=== PATIENT | female | born 1950 ===

== ENCOUNTER 2018-02-06 16:17 | Inpatient (IN) | payer OTHER ==
[2018-02-06 18:31] VITALS: BMI 23.2
--- NOTE | 2018-02-06 20:41 | CP.PCM.HP ---
History of Present Illness - History of Present Illness History of Present Illness: cc fall 68F PMH hypertension admitted to TCU from [facility] s/p L shoulder hemoarthoplasty after sustaining fracture of the L shoulder due to fall. Pt is admitted with a sodium of 126, which was [address] [facility]. She is being followed by Nephrology, Dr. Neri. She is admitted TCU for further PT/OT and correction of Na. Nephrology consult Dr. Cr appreciated and followed. ROS: per HPI all other systems reviewd and negative. Present on Admission - Present on Admission Any Indicators Present on Admission: No Past Patient History - Past Medical History & Family History Past Medical History?: Yes - Past Social History Smoking Status: Never Smoked - CARDIAC Hx Cardiac Disorders: No Hx Hypertension: Yes - PULMONARY Hx Respiratory Disorders: No - NEUROLOGICAL Hx Neurological Disorder: No - HEENT Hx HEENT Problems: Yes Hx Glaucoma: Yes - RENAL Hx Chronic Kidney Disease: No - ENDOCRINE/METABOLIC Hx Endocrine Disorders: No - HEMATOLOGICAL/ONCOLOGICAL Hx Blood Disorders: No Hx AIDS: No Hx Human Immunodeficiency Virus (HIV): No - INTEGUMENTARY Hx Dermatological Problems: No - MUSCULOSKELETAL/RHEUMATOLOGICAL Hx Falls: Yes - GASTROINTESTINAL Hx Gastrointestinal Disorders: Yes Hx Gall Bladder Disease: Yes - GENITOURINARY/GYNECOLOGICAL Hx Genitourinary Disorders: No - PSYCHIATRIC Hx Psychophysiologic Disorder: No Hx Substance Use: No - SURGICAL HISTORY Hx Surgeries: Yes Other/Comment: Fibroids removed by Dr Yenni Teran - ANESTHESIA Hx Anesthesia: Yes Hx Anesthesia Reactions: No Hx Malignant Hyperthermia: No Meds Allergies/Adverse Reactions: Allergies Allergy/AdvReac Type Severity Reaction Status Date / Time No Known Allergies Allergy Verified 02/06/18 18:27 Physical Exam - Constitutional Appears: Non-toxic, No Acute Distress - Head Exam Head Exam: ATRAUMATIC, NORMOCEPHALIC - Eye Exam Eye Exam: EOMI, Normal appearance, PERRL - ENT Exam ENT Exam: Mucous Membranes Moist, Normal Oropharynx - Respiratory Exam Respiratory Exam: Clear to Auscultation Bilateral, NORMAL BREATHING PATTERN - Cardiovascular Exam Cardiovascular Exam: RRR, +S1, +S2 - GI/Abdominal Exam GI & Abdominal Exam: Normal Bowel Sounds, Soft. absent: Mass, Organomegaly - Extremities Exam Extremities exam: Positive for: normal capillary refill, pedal pulses present - Back Exam Back exam: absent: CVA tenderness (L), CVA tenderness (R) - Neurological Exam Neurological exam: Alert, Oriented x3 - Psychiatric Exam Psychiatric exam: Normal Affect, Normal Mood - Skin Skin Exam: Dry, Warm Results - Vital Signs Recent Vital Signs: Last Vital Signs Temp 98.2 F 02/06/18 18:10 Pulse 101 H 02/06/18 18:10 Resp 18 02/06/18 18:10 BP 120/69 02/06/18 18:10 Pulse Ox 97 02/06/18 18:10 Assessment & Plan - Assessment and Plan (Free Text) Plan: 68F PMH hypertension admitted to TCU from [facility] s/p L shoulder hemoarthoplasty after sustaining fracture of the L shoulder due to fall. Pt is admitted with a sodium of 126, which was [address] [facility]. She is being followed by Nephrology, Dr. Neri. She is admitted TCU for further PT/OT and correction of Na. Nephrology consult Dr. Cr appreciated and followed. s/p L shoulder hemarthroplasty continue PT OT pain control Hyponatremia continue NS Dr. Cr on consult for Nephrology HTN continue losartan Glaucoma continue drops DVT ppx lovenox
[2018-02-06 21:39] VITALS: RESP 20
[2018-02-06] MEDS: Sodium Chloride 0.9% 1,000 ML IV SCH (23:00)
[2018-02-06] MEDS: oxyCODONE 5 mg Immediate Release Tab PO PRN (23:16)
[2018-02-07 06:58] LABS: HEMOGLOBIN 8.2 g/dL (12.0-16.0); MEAN CELL VOLUME 80.7 fl (81.0-99.0); MEAN CORPUSCULAR HEMOGLOBIN 27.7 pg (27.0-31.0); MEAN CORPUSCULAR HGB CONC 34.3 g/dL (33.0-37.0); RBC 2.97 Mil/uL (3.80-5.20); RED CELL DISTRIBUTION WIDTH 14.1 % (11.5-14.5); WHITE BLOOD COUNT 10.9 K/uL (4.8-10.8)
[2018-02-07 07:10] LABS: BLOOD UREA NITROGEN 17 mg/dl (7-17); CALCIUM 8.2 mg/dL (8.4-10.2); GFR AFRICAN-AMERICAN > 60; GFR NON-AFRICAN AMERICAN > 60
[2018-02-07] MEDS: Multivitamin With Minerals Tab PO SCH (08:53)
[2018-02-07] MEDS: Enoxaparin 40 mg Syringe SC SCH (08:53)
[2018-02-07] MEDS: oxyCODONE 5 mg Immediate Release Tab PO PRN ×2 (08:54→14:49)
[2018-02-07] MEDS ORDERED: Patient's Own Med (Multivitamins [Hexavitamin] 1 TAB) PO SCH (09:00)
[2018-02-07] MEDS ORDERED: Pneumococcal 23-Valent Vaccine IM ONE (09:00)
[2018-02-07] MEDS ORDERED: Patient's Own Med (Dorzolamide 2%/Timolol 0.5% [Cosopt 2%-0.5% Opht] 1 DROP) OU SCH (09:00)
[2018-02-07] MEDS: Sodium Chloride 0.9% 1,000 ML IV SCH ×2 (10:47→17:35)
--- NOTE | 2018-02-07 17:15 | CP.PCM.PN ---
Subjective - Date & Time of Evaluation Date of Evaluation: 02/07/18 Time of Evaluation: 17:15 - Subjective Subjective: pt is seen and examined, follow up consult is dictated #[id number] Objective - Vital Signs/Intake and Output Vital Signs (last 24 hours): Temp Pulse Resp BP Pulse Ox 97.7 F 85 20 99/58 L 97 02/07/18 15:57 02/07/18 15:57 02/07/18 15:57 02/07/18 15:57 02/07/18 15:57 - Medications Medications: Current Medications Acetaminophen (Tylenol 325mg Tab) 650 mg PO Q6 PRN PRN Reason: Pain, Mild (1-3) Amlodipine Besylate (Norvasc) 5 mg PO DAILY [facility] Last Admin: 02/07/18 08:53 Dose: 5 mg Docusate Sodium (Colace) 100 mg PO BID [facility] Last Admin: 02/07/18 08:52 Dose: 100 mg Enoxaparin Sodium (Lovenox) 40 mg SC DAILY [facility] PRN Reason: Protocol Last Admin: 02/07/18 08:53 Dose: 40 mg Sodium Chloride (Sodium Chloride 0.9%) 1,000 mls @ 100 mls/hr IV .Q10H [facility] Stop: 02/07/18 20:36 Last Admin: 02/07/18 10:47 Dose: 100 mls/hr Lactulose (Enulose) 20 gm PO DAILY PRN PRN Reason: Constipation Last Admin: 02/07/18 13:12 Dose: 20 gm Losartan Potassium (Cozaar) 50 mg PO DAILY [facility] Last Admin: 02/07/18 08:52 Dose: 50 mg Multivitamins/Minerals (Therapeutic-M Tab) 1 tab PO DAILY [facility] Last Admin: 02/07/18 08:53 Dose: 1 tab Oxycodone HCl (Oxycodone Immediate Release Tab) 5 mg PO Q4 PRN PRN Reason: Pain, severe (8-10) Last Admin: 02/07/18 14:49 Dose: 5 mg Promethazine HCl/Dextromethorphan (Phenergan Dm Syrup) 5 ml PO Q8 PRN PRN Reason: Cough Timolol Maleate (Timoptic 0.5% Ophth Soln) 1 drop OU BID [facility] Last Admin: 02/07/18 08:55 Dose: 1 drop - Labs Labs: 02/07/18 06:00 02/07/18 06:00
[2018-02-08] MEDS: Sodium Chloride 0.9% 1,000 ML IV SCH ×3 (01:52→22:24)
[2018-02-08] MEDS: oxyCODONE 5 mg Immediate Release Tab PO PRN ×3 (03:07→22:21)
[2018-02-08 06:49] LABS: HEMOGLOBIN 7.9 g/dL (12.0-16.0); MEAN CELL VOLUME 80.6 fl (81.0-99.0); MEAN CORPUSCULAR HEMOGLOBIN 27.9 pg (27.0-31.0); MEAN CORPUSCULAR HGB CONC 34.6 g/dL (33.0-37.0); RBC 2.83 Mil/uL (3.80-5.20); RED CELL DISTRIBUTION WIDTH 14.4 % (11.5-14.5); WHITE BLOOD COUNT 14.4 K/uL (4.8-10.8)
[2018-02-08] MEDS: Multivitamin With Minerals Tab PO SCH (08:41)
[2018-02-08] MEDS: Enoxaparin 40 mg Syringe SC SCH ×2 (08:42→10:31)
--- NOTE | 2018-02-08 09:07 | CP.PCM.CON ---
History of Present Illness - History of Present Illness History of Present Illness: Dr Lala PMR consultation on Amanda Hernadez, born 1950 who has been admitted to [facility] TCU following a left TSR. She suffered a fall with resultant fracture. Dr Bray performed TSR. Post op hyponatria and Anemia. Hgb is trending down and was 7.9 today. Moving legs well and can squeeze hand ok as well. I will hold the LMWH at this point and reinforce leg pumps and hand squeezing Review of Systems - Constitutional Constitutional: absent: Chills, Daytime Sleepiness - EENT Eyes: absent: Blurred Vision, Change in Vision Ears: absent: Ear Discharge Nose/Mouth/Throat: absent: Nasal Congestion - Cardiovascular Cardiovascular: absent: Chest Pain - Respiratory Respiratory: absent: Cough, Dyspnea - Gastrointestinal Gastrointestinal: absent: Belching, Constipation - Musculoskeletal Musculoskeletal: Stiffness. absent: Back Pain - Integumentary Integumentary: Other (left shoulder incisions) Past Patient History - Past Medical History & Family History Past Medical History?: Yes - Past Social History Smoking Status: Never Smoked Alcohol: None Drugs: Denies Home Situation {Lives}: Alone (few steps) - CARDIAC Hx Cardiac Disorders: No Hx Hypertension: Yes - PULMONARY Hx Respiratory Disorders: No - NEUROLOGICAL Hx Neurological Disorder: No - HEENT Hx HEENT Problems: Yes Hx Glaucoma: Yes - RENAL Hx Chronic Kidney Disease: No - ENDOCRINE/METABOLIC Hx Endocrine Disorders: No - HEMATOLOGICAL/ONCOLOGICAL Hx Blood Disorders: No Hx AIDS: No Hx Human Immunodeficiency Virus (HIV): No - INTEGUMENTARY Hx Dermatological Problems: No - MUSCULOSKELETAL/RHEUMATOLOGICAL Hx Falls: Yes - GASTROINTESTINAL Hx Gastrointestinal Disorders: Yes Hx Gall Bladder Disease: Yes - GENITOURINARY/GYNECOLOGICAL Hx Genitourinary Disorders: No - PSYCHIATRIC Hx Psychophysiologic Disorder: No Hx Substance Use: No - SURGICAL HISTORY Hx Surgeries: Yes Other/Comment: Fibroids removed by Dr Yenni Teran - ANESTHESIA Hx Anesthesia: Yes Hx Anesthesia Reactions: No Hx Malignant Hyperthermia: No Meds Allergies/Adverse Reactions: Allergies Allergy/AdvReac Type Severity Reaction Status Date / Time No Known Allergies Allergy Verified 02/06/18 18:27 - Medications Medications: Current Medications Acetaminophen (Tylenol 325mg Tab) 650 mg PO Q6 PRN PRN Reason: Pain, Mild (1-3) Amlodipine Besylate (Norvasc) 5 mg PO DAILY [facility] Last Admin: 02/08/18 08:42 Dose: 5 mg Docusate Sodium (Colace) 100 mg PO BID [facility] Last Admin: 02/08/18 08:41 Dose: Not Given Enoxaparin Sodium (Lovenox) 40 mg SC DAILY [facility] PRN Reason: Protocol Last Admin: 02/07/18 08:53 Dose: 40 mg Sodium Chloride (Sodium Chloride 0.9%) 1,000 mls @ 100 mls/hr IV .Q10H [facility] Stop: 02/09/18 01:09 Last Admin: 02/08/18 01:52 Dose: 100 mls/hr Lactulose (Enulose) 20 gm PO DAILY PRN PRN Reason: Constipation Last Admin: 02/07/18 13:12 Dose: 20 gm Losartan Potassium (Cozaar) 50 mg PO DAILY [facility] Last Admin: 02/08/18 08:41 Dose: 50 mg Multivitamins/Minerals (Therapeutic-M Tab) 1 tab PO DAILY [facility] Last Admin: 02/08/18 08:41 Dose: 1 tab Oxycodone HCl (Oxycodone Immediate Release Tab) 5 mg PO Q4 PRN PRN Reason: Pain, severe (8-10) Last Admin: 02/08/18 07:50 Dose: 5 mg Promethazine HCl/Dextromethorphan (Phenergan Dm Syrup) 5 ml PO Q8 PRN PRN Reason: Cough Timolol Maleate (Timoptic 0.5% Ophth Soln) 1 drop OU BID [facility] Last Admin: 02/08/18 08:43 Dose: 1 drop Physical Exam - Constitutional Appears: Non-toxic, No Acute Distress - Head Exam Head Exam: ATRAUMATIC, NORMAL INSPECTION, NORMOCEPHALIC - Eye Exam Eye Exam: EOMI - ENT Exam ENT Exam: Mucous Membranes Moist - Respiratory Exam Respiratory Exam: NORMAL BREATHING PATTERN - Cardiovascular Exam Cardiovascular Exam: REGULAR RHYTHM - GI/Abdominal Exam GI & Abdominal Exam: absent: Distended - Extremities Exam Extremities exam: Positive for: full ROM (except left shoulder). Negative for: calf tenderness, pedal edema - Neurological Exam Neurological exam: Alert, CN II-XII Intact, Oriented x3 - Psychiatric Exam Psychiatric exam: Normal Affect, Normal Mood - Skin Skin Exam: Warm Results - Vital Signs Recent Vital Signs: Last Vital Signs Temp 97.4 F L 02/08/18 08:10 Pulse 78 02/08/18 08:42 Resp 20 02/08/18 08:10 BP 121/73 02/08/18 08:42 Pulse Ox 99 02/08/18 08:10 - Labs Result Diagrams: 02/08/18 05:30 02/07/18 06:00 Labs: Laboratory Results - last 24 hr 02/08/18 05:30 WBC 14.4 H RBC 2.83 L Hgb 7.9 L Hct 22.9 L MCV 80.6 L MCH 27.9 MCHC 34.6 RDW 14.4 Plt Count 354 Assessment & Plan - Assessment and Plan (Free Text) Assessment: 68 year old right hand dominant female s/p left TSR post op pain but tolerating meds was constipated but had good BMs trending low Hgb will hold LMWH and have do leg and arm pumps no calf swelling or tenderness continue current care
[2018-02-09] MEDS: oxyCODONE 5 mg Immediate Release Tab PO PRN ×3 (05:29→21:55)
[2018-02-09 07:49] LABS: MEAN CELL VOLUME 79.7 fl (81.0-99.0); MEAN CORPUSCULAR HEMOGLOBIN 27.6 pg (27.0-31.0); MEAN CORPUSCULAR HGB CONC 34.6 g/dL (33.0-37.0); RBC 2.9 Mil/uL (3.80-5.20); RED CELL DISTRIBUTION WIDTH 14.7 % (11.5-14.5); WHITE BLOOD COUNT 10.4 K/uL (4.8-10.8)
[2018-02-09 08:12] LABS: ALB/GLOB RATIO 0.9 (1.0-2.1); ALBUMIN 2.6 g/dL (3.5-5.0); ALT/SGPT 35 U/L (9-52); AST/SGOT 28 U/L (14-36); BLOOD UREA NITROGEN 8 mg/dl (7-17); CALCIUM 7.9 mg/dL (8.4-10.2); GFR AFRICAN-AMERICAN > 60; GFR NON-AFRICAN AMERICAN > 60
[2018-02-09] MEDS: Multivitamin With Minerals Tab PO SCH (08:23)
--- NOTE | 2018-02-09 13:16 | CP.PCM.PN ---
Subjective - Date & Time of Evaluation Date of Evaluation: 02/09/18 Time of Evaluation: 13:16 - Subjective Subjective: pt is seen and examined, follow up consult is dictated # serum na is improving, c/w analgesics as [id number] Objective - Vital Signs/Intake and Output Vital Signs (last 24 hours): Temp Pulse Resp BP Pulse Ox 97 F L 77 20 144/78 98 02/09/18 09:00 02/09/18 09:00 02/09/18 09:00 02/09/18 09:00 02/09/18 09:00 - Medications Medications: Current Medications Acetaminophen (Tylenol 325mg Tab) 650 mg PO Q6 PRN PRN Reason: Pain, Mild (1-3) Last Admin: 02/09/18 02:35 Dose: 650 mg Amlodipine Besylate (Norvasc) 5 mg PO DAILY [facility] Last Admin: 02/09/18 08:23 Dose: 5 mg Docusate Sodium (Colace) 100 mg PO BID [facility] Last Admin: 02/09/18 08:22 Dose: 100 mg Lactulose (Enulose) 20 gm PO DAILY PRN PRN Reason: Constipation Last Admin: 02/07/18 13:12 Dose: 20 gm Losartan Potassium (Cozaar) 50 mg PO DAILY [facility] Last Admin: 02/09/18 08:22 Dose: 50 mg Multivitamins/Minerals (Therapeutic-M Tab) 1 tab PO DAILY [facility] Last Admin: 02/09/18 08:23 Dose: 1 tab Oxycodone HCl (Oxycodone Immediate Release Tab) 5 mg PO Q4 PRN PRN Reason: Pain, severe (8-10) Last Admin: 02/09/18 05:29 Dose: 5 mg Promethazine HCl/Dextromethorphan (Phenergan Dm Syrup) 5 ml PO Q8 PRN PRN Reason: Cough Timolol Maleate (Timoptic 0.5% Ophth Soln) 1 drop OU BID [facility] Last Admin: 02/09/18 08:23 Dose: 1 drop - Labs Labs: 02/09/18 05:30 02/09/18 05:30
--- NOTE | 2018-02-10 03:56 | PN ---
Copied To: Cali Neri MD Attending MD: Cali Neri MD DATE: 02/09/2018 LOCATION: The patient is located in room 78, bed 1. REQUESTED BY: . REASON FOR FOLLOWUP: Hyponatremia. SUBJECTIVE: Mrs. Hernadez is a 68-year-old elderly Nepalese female with a history of longstanding hypertension, gallbladder disease, who was admitted initially to [facility]3] after she had a fall in the house twice and sustained injury to the left shoulder and found to have an injury to the proximal left humerus and subsequently the patient underwent left hemiarthroplasty of the left shoulder and the patient was also found to have severe hyponatremia on admission, 111, and subsequently serum sodium improved with hydration to 131, went for surgery and postop her serum sodium dropped again to 124, and the patient was placed on some fluid restriction with slight improvement and started on IV fluids one day prior to the discharge to transitional care unit. Now, the patient is feeling better and the patient is on IV fluid, normal saline at 50 mL per hour. Denies any complaints. No chest pain. No palpitation. No fever. No cough. No abdominal pain. No nausea, vomiting, diarrhea. The patient is out of bed to chair. PHYSICAL EXAMINATION: GENERAL: Mrs. Hernadez is a 68-year-old elderly [place]alese female, moderately built, moderately nourished, not in acute distress. VITAL SIGNS: This morning as follows: Blood pressure 144/78, pulse 77, respirations 20, temperature 97, saturation 98%, height 4 feet 11 inches and weight is 119 pounds. HEENT: Pupils, normal reactive to light and accommodation. Conjunctiva pink. Sclera anicteric. Tongue is moist. Trachea is midline. LUNGS: Symmetric on both sides. Bilateral breath sounds present. Clear to auscultation. CVS; Williams at the fifth intercostal space, mid clavicular line. S1, S2 audible. ABDOMEN: Normal in appearance. Soft tympanitic. No guarding. No rigidity. No hepatosplenomegaly. COMMUNICATIONS ASSOCIATE: The patient is alert, awake, oriented x3. Nonfocal neuro exam. Cranial nerve II through XII grossly intact. Sensory and motor system is within normal limits. EXTREMITIES: No cyanosis. No clubbing. No edema. CURRENT MEDICATIONS: Include as follows: Colace 100 mg p.o. b.i.d., losartan 50 mg p.o. daily, lactulose 20 g p.o. daily, amlodipine 5 mg daily, oxycodone 5 mg p.o. every 4 hours p.r.n. Phenergan DM syrup 5 mL p.o. every 8 hours p.r.n., multivitamin, and timolol eyedrops and Tylenol. LABORATORY DATA: Her current laboratory data include as follows as of 02/09/2018: WBC 10.4, hemoglobin 8.0, hematocrit is 23.1, and MCV 79.7. Platelets 388. Sodium 132, potassium 3.6, chloride 97, CO2 of 28, BUN 8, creatinine 0.5, glucose 93, and calcium 7.9, total bili 1, AST 28, ALT 25, alkaline phosphatase is 573 and total protein is 5.6, albumin is 2.6. In summary, Mrs. Hernadez is a 68-year-old elderly [place]alese female with hypertension, hyponatremia, status post fall, twisted injury to the left humerus, status post left hemiarthroplasty and hyponatremia. 2. Hyponatremia, most likely secondary to intravascular volume depletion secondary to p.o. intake, serum sodium is nicely improving with gentle IV hydration at this time. I encourage p.o. intake. 2. Hypoalbuminemia. 3. Hypertension. Blood pressure is stable. Continue her current medication losartan and Norvasc. Continue to monitor BNP. We will follow up as needed. 4. Anemia secondary to recent surgery and rule out iron deficiency anemia. Check iron, TIBC, ferritin level and add Procrit 10,000 units three times a week and also dietary supplement p.o. b.i.d. Thank you for allowing me to participate in our patient's care. Cali Neri MD
--- NOTE | 2018-02-10 08:25 | PN ---
Copied To: Cali Neri MD Attending MD: Cali Neri MD DATE: 02/07/2018 FOLLOWUP RENAL CONSULTATION LOCATION: The patient is located in [facility], room 708, bed 1. REQUESTED BY: SUBJECTIVE: Mrs. Hernadez is a 68-year-old elderly [place] female with a past medical history significant for longstanding hypertension, colon and gallbladder disease, status post fall at home twice and here with injury to the left shoulder, found to have a fracture of the left humerus, status post left hemiarthroplasty on Saturday. The patient was transferred to the transitional care unit yesterday from [facility] for physical therapy. The patient is not in acute distress. Denies any headache or dizziness. Denies any chest pain or palpitations. Denies any fever or cough. No abdominal pain. No nausea, vomiting, or diarrhea. The patient is ambulating. PHYSICAL EXAMINATION: VITAL SIGNS: As follows: Blood pressure 132/67, pulse , respirations 20, temperature . GENERAL: Mrs. Hernadez is a 68-year-old elderly [place] female, moderately built, moderately nourished, not in acute distress. HEENT: Pupils are normal and reactive to light and accommodation. Conjunctivae pink. Sclerae anicteric. Tongue is moist. Trachea is midline. LUNGS: Symmetric on both sides. Bilateral breath sounds present. Clear to auscultation. CVS: Ackley at the fifth intercostal space, midclavicular line. S1 and S2 audible. No murmur or gallop. ABDOMEN: Normal in appearance. Soft, tympanitic. No guarding. No rigidity. No hepatosplenomegaly. SOCIAL MEDIA MANAGER: The patient is alert, awake, and oriented x3. Nonfocal neuro examination. Cranial nerves II-XII grossly intact. Sensory and motor system is within normal limits. EXTREMITIES: No cyanosis, no clubbing, no edema. CURRENT MEDICATIONS: Include as follows: Colace 100 mg p.o. daily, losartan 50 mg p.o. daily, lactulose 20 g p.o. daily, Lovenox 40 mg subcu daily, amlodipine 5 mg daily, IV fluids normal saline at 50 mL per hour, . LABORATORY DATA: Include as follows: WBC 10.9, hemoglobin 8.2, hematocrit is 34, platelets . Sodium 127, potassium 4.2, chloride 94, CO2 of 28, BUN 17, creatinine 0.6, blood glucose , calcium 8.2. ASSESSMENT AND PLAN: In summary, Mr. Hernadez is a 68-year-old elderly [place] female with a history of hypertension, status post fall twice in the house, sustained injury to the left shoulder and fracture of the left proximal humerus, status post left hemiarthroplasty with hyponatremia. The patient was admitted initially . 1. Hypertension. Blood pressure is stable. Continue blood pressure medication of Norvasc and . 2. Status post fall with a fracture of the left proximal humerus. . 3. Hyponatremia. Initially, hyponatremia was mostly likely secondary to intravascular depletion. Now, hyponatremia is most likely secondary to syndrome of inappropriate secretion of antidiuretic hormone which cannot be ruled out postoperative pain. Restrict fluids to 1 liter per day. We will continue to monitor BMP. 4. . We will follow with you. Thank you for allowing me to participate in your patient's care. Cali Neri MD
[2018-02-10] MEDS ORDERED: Iron Sucrose 100 mg/5 ml Inj IVP SCH (09:00)
[2018-02-10] MEDS: Multivitamin With Minerals Tab PO SCH (09:48)
[2018-02-10] MEDS: Promethazine DM 6.25 mg-15 mg/5 ml Syrup PO PRN (09:49)
[2018-02-10] MEDS: oxyCODONE 5 mg Immediate Release Tab PO PRN ×3 (09:53→20:52)
[2018-02-10] MEDS: EPOETIN ALFA 10,000 UNIT/ML ML SC SCH (11:19)
[2018-02-11] MEDS: Multivitamin With Minerals Tab PO SCH (08:52)
[2018-02-11] MEDS: Promethazine DM 6.25 mg-15 mg/5 ml Syrup PO PRN (08:53)
[2018-02-11] MEDS: oxyCODONE 5 mg Immediate Release Tab PO PRN ×3 (10:12→20:52)
--- NOTE | 2018-02-11 19:08 | CP.PCM.PN ---
Subjective - Date & Time of Evaluation Date of Evaluation: 02/11/18 Time of Evaluation: 13:30 - Subjective Subjective: Patient seen and examined. Pain on left shoulder tolerable. Objective - Vital Signs/Intake and Output Vital Signs (last 24 hours): Temp Pulse Resp BP Pulse Ox 97.7 F 74 20 102/65 100 02/11/18 15:44 02/11/18 15:44 02/11/18 15:44 02/11/18 15:44 02/11/18 15:44 - Medications Medications: Current Medications Acetaminophen (Tylenol 325mg Tab) 650 mg PO Q6 PRN PRN Reason: Pain, Mild (1-3) Last Admin: 02/09/18 02:35 Dose: 650 mg Amlodipine Besylate (Norvasc) 5 mg PO DAILY [facility] Last Admin: 02/11/18 08:53 Dose: 5 mg Docusate Sodium (Colace) 100 mg PO BID [facility] Last Admin: 02/11/18 17:33 Dose: 100 mg Epoetin Brandon (Procrit) 10,000 unit SC MWF [facility] Last Admin: 02/10/18 11:19 Dose: 10,000 unit Iron Sucrose 100 mg/ Sodium (Chloride) 105 mls @ 105 mls/hr IV DAILY@1700 [facility] Last Admin: 02/11/18 17:34 Dose: 105 mls/hr Lactulose (Enulose) 20 gm PO DAILY PRN PRN Reason: Constipation Last Admin: 02/07/18 13:12 Dose: 20 gm Losartan Potassium (Cozaar) 50 mg PO DAILY [facility] Last Admin: 02/11/18 08:54 Dose: 50 mg Multivitamins/Minerals (Therapeutic-M Tab) 1 tab PO DAILY [facility] Last Admin: 02/11/18 08:52 Dose: 1 tab Oxycodone HCl (Oxycodone Immediate Release Tab) 5 mg PO Q4 PRN PRN Reason: Pain, severe (8-10) Last Admin: 02/11/18 14:46 Dose: 5 mg Promethazine HCl/Dextromethorphan (Phenergan Dm Syrup) 5 ml PO Q8 PRN PRN Reason: Cough Last Admin: 02/11/18 08:53 Dose: 5 ml Timolol Maleate (Timoptic 0.5% Ophth Soln) 1 drop OU BID [facility] Last Admin: 02/11/18 17:33 Dose: 1 drop - Labs Labs: 02/09/18 05:30 02/09/18 05:30 - Constitutional Appears: No Acute Distress - Head Exam Head Exam: ATRAUMATIC - Eye Exam Eye Exam: absent: Scleral icterus - ENT Exam ENT Exam: Mucous Membranes Moist - Neck Exam Neck Exam: absent: Meningismus - Respiratory Exam Respiratory Exam: absent: Rales, Rhonchi, Wheezes, Respiratory Distress - Cardiovascular Exam Cardiovascular Exam: REGULAR RHYTHM, +S1, +S2 - GI/Abdominal Exam GI & Abdominal Exam: Soft. absent: Tenderness - Rectal Exam Rectal Exam: Deferred - Extremities Exam Extremities Exam: absent: Full ROM (left shoulder on spica) - Back Exam Back Exam: NORMAL INSPECTION - Neurological Exam Neurological Exam: Alert, Oriented x3 - Psychiatric Exam Psychiatric exam: Normal Affect - Skin Skin Exam: Dry, Intact Assessment and Plan - Assessment and Plan (Free Text) Assessment: 68 yo female with history of hypertension admitted to TCU from [facility] post left shoulder hemoarthoplasty after fracture of the left shoulder from a fall. Patient also had hyponatremia and was managed by Dr Neri. 1. S/P Left Shoulder Hemarthroplasty continue PT OT pain control 2. Hyponatremia resolved 3. HTN BP stable continue Losartan 4. DVT prophylaxis venodyne boots while in bed
[2018-02-12] MEDS: Multivitamin With Minerals Tab PO SCH (09:28)
[2018-02-12] MEDS: oxyCODONE 5 mg Immediate Release Tab PO PRN ×2 (09:56→23:28)
[2018-02-12] MEDS: EPOETIN ALFA 10,000 UNIT/ML ML SC SCH (13:14)
[2018-02-12] MEDS: Promethazine DM 6.25 mg-15 mg/5 ml Syrup PO PRN (18:10)
[2018-02-13] MEDS: Multivitamin With Minerals Tab PO SCH (10:04)
[2018-02-13] MEDS: oxyCODONE 5 mg Immediate Release Tab PO PRN ×2 (11:07→22:18)
--- NOTE | 2018-02-13 13:45 | CP.PCM.PN ---
Subjective - Date & Time of Evaluation Date of Evaluation: 02/13/18 Time of Evaluation: 11:15 - Subjective Subjective: Patient seen and examined. Pain on left shoulder described as soreness and tolerable. Objective - Vital Signs/Intake and Output Vital Signs (last 24 hours): Temp Pulse Resp BP Pulse Ox 97.9 F 76 20 134/79 99 02/13/18 08:05 02/13/18 10:04 02/13/18 08:05 02/13/18 10:04 02/13/18 08:05 - Medications Medications: Current Medications Acetaminophen (Tylenol 325mg Tab) 650 mg PO Q6 PRN PRN Reason: Pain, Mild (1-3) Last Admin: 02/09/18 02:35 Dose: 650 mg Amlodipine Besylate (Norvasc) 5 mg PO DAILY [facility] Last Admin: 02/13/18 10:04 Dose: 5 mg Docusate Sodium (Colace) 100 mg PO BID [facility] Last Admin: 02/13/18 10:04 Dose: 100 mg Epoetin Brandon (Procrit) 10,000 unit SC MWF [facility] Last Admin: 02/12/18 13:14 Dose: 10,000 unit Iron Sucrose 100 mg/ Sodium (Chloride) 105 mls @ 105 mls/hr IV DAILY@1700 [facility] Last Admin: 02/12/18 17:42 Dose: 105 mls/hr Lactulose (Enulose) 20 gm PO DAILY PRN PRN Reason: Constipation Last Admin: 02/07/18 13:12 Dose: 20 gm Losartan Potassium (Cozaar) 50 mg PO DAILY [facility] Last Admin: 02/13/18 10:03 Dose: 50 mg Multivitamins/Minerals (Therapeutic-M Tab) 1 tab PO DAILY [facility] Last Admin: 02/13/18 10:04 Dose: 1 tab Oxycodone HCl (Oxycodone Immediate Release Tab) 5 mg PO Q4 PRN PRN Reason: Pain, severe (8-10) Last Admin: 02/13/18 11:07 Dose: 5 mg Promethazine HCl/Dextromethorphan (Phenergan Dm Syrup) 5 ml PO Q8 PRN PRN Reason: Cough Last Admin: 02/12/18 18:10 Dose: 5 ml Timolol Maleate (Timoptic 0.5% Ophth Soln) 1 drop OU BID [facility] Last Admin: 02/13/18 10:03 Dose: 1 drop - Labs Labs: 02/09/18 05:30 02/09/18 05:30 - Constitutional Appears: No Acute Distress - Head Exam Head Exam: ATRAUMATIC - Eye Exam Eye Exam: absent: Scleral icterus - ENT Exam ENT Exam: Mucous Membranes Moist - Neck Exam Neck Exam: absent: Meningismus - Respiratory Exam Respiratory Exam: absent: Rales, Rhonchi, Wheezes, Respiratory Distress - Cardiovascular Exam Cardiovascular Exam: REGULAR RHYTHM, +S1, +S2 - GI/Abdominal Exam GI & Abdominal Exam: Soft. absent: Tenderness - Rectal Exam Rectal Exam: Deferred - Extremities Exam Extremities Exam: absent: Full ROM (limited ROM on left shoulder) - Back Exam Back Exam: absent: tenderness - Neurological Exam Neurological Exam: Alert, Oriented x3 - Psychiatric Exam Psychiatric exam: Normal Affect - Skin Skin Exam: Dry, Intact Assessment and Plan - Assessment and Plan (Free Text) Assessment: 68 yo female with history of hypertension admitted to TCU from [facility] post left shoulder hemoarthoplasty after fracture of the left shoulder from a fall. Patient also had hyponatremia and was managed by Dr Neri. 1. S/P Left Shoulder Hemarthroplasty continue PT OT pain control 2. Hyponatremia resolved serum Na: 132 BMP in am 3. HTN BP stable continue Losartan 4. Anemia from blood loss received Venofer and Procrit Hgb: 8.0 CBC in am 5. DVT prophylaxis venodyne boots while in bed Lovenox DC because of anemia
[2018-02-14] MEDS: oxyCODONE 5 mg Immediate Release Tab PO PRN ×2 (06:39→21:44)
[2018-02-14 07:51] LABS: HEMOGLOBIN 9.7 g/dL (12.0-16.0); MEAN CELL VOLUME 82.2 fl (81.0-99.0); MEAN CORPUSCULAR HEMOGLOBIN 28.1 pg (27.0-31.0); MEAN CORPUSCULAR HGB CONC 34.2 g/dL (33.0-37.0); RBC 3.46 Mil/uL (3.80-5.20); RED CELL DISTRIBUTION WIDTH 15.3 % (11.5-14.5); WHITE BLOOD COUNT 8.4 K/uL (4.8-10.8)
[2018-02-14 08:45] LABS: BLOOD UREA NITROGEN 14 mg/dl (7-17); CALCIUM 8.8 mg/dL (8.4-10.2); GFR AFRICAN-AMERICAN > 60; GFR NON-AFRICAN AMERICAN > 60
[2018-02-14] MEDS: EPOETIN ALFA 10,000 UNIT/ML ML SC SCH (09:45)
[2018-02-14] MEDS: Multivitamin With Minerals Tab PO SCH (09:46)
--- NOTE | 2018-02-14 17:03 | CP.PCM.PN ---
Subjective - Date & Time of Evaluation Date of Evaluation: 02/14/18 Time of Evaluation: 17:02 - Subjective Subjective: Patient seen in her room some left ulnar neuropathy complaints I discussed with therapy to support the shoulder but range the elbow as she is in a flexed elbow position putting the ulnar nerve at risk continue current care set for d/c to [facility] 02/16/18 Objective - Vital Signs/Intake and Output Vital Signs (last 24 hours): Temp Pulse Resp BP Pulse Ox 97.2 F L 75 20 106/64 98 02/14/18 16:21 02/14/18 16:21 02/14/18 16:21 02/14/18 16:21 02/14/18 16:21 - Medications Medications: Current Medications Acetaminophen (Tylenol 325mg Tab) 650 mg PO Q6 PRN PRN Reason: Pain, Mild (1-3) Last Admin: 02/09/18 02:35 Dose: 650 mg Amlodipine Besylate (Norvasc) 5 mg PO DAILY [facility] Last Admin: 02/14/18 09:46 Dose: 5 mg Docusate Sodium (Colace) 100 mg PO BID [facility] Last Admin: 02/14/18 16:32 Dose: 100 mg Epoetin Brandon (Procrit) 10,000 unit SC MWF [facility] Last Admin: 02/14/18 09:45 Dose: 10,000 unit Iron Sucrose 100 mg/ Sodium (Chloride) 105 mls @ 105 mls/hr IV DAILY@1700 [facility] Last Admin: 02/14/18 16:32 Dose: 105 mls/hr Lactulose (Enulose) 20 gm PO DAILY PRN PRN Reason: Constipation Last Admin: 02/07/18 13:12 Dose: 20 gm Losartan Potassium (Cozaar) 50 mg PO DAILY [facility] Last Admin: 02/14/18 09:45 Dose: 50 mg Multivitamins/Minerals (Therapeutic-M Tab) 1 tab PO DAILY [facility] Last Admin: 02/14/18 09:46 Dose: 1 tab Oxycodone HCl (Oxycodone Immediate Release Tab) 5 mg PO Q4 PRN PRN Reason: Pain, severe (8-10) Last Admin: 02/14/18 06:39 Dose: 5 mg Promethazine HCl/Dextromethorphan (Phenergan Dm Syrup) 5 ml PO Q8 PRN PRN Reason: Cough Last Admin: 02/12/18 18:10 Dose: 5 ml Timolol Maleate (Timoptic 0.5% Ophth Soln) 1 drop OU BID [facility] Last Admin: 02/14/18 16:32 Dose: 1 drop - Labs Labs: 02/14/18 06:55 02/14/18 06:55
[2018-02-15] MEDS: Multivitamin With Minerals Tab PO SCH (08:32)
[2018-02-15] MEDS: Promethazine DM 6.25 mg-15 mg/5 ml Syrup PO PRN (13:49)
[2018-02-15 15:56] VITALS: O2SAT 97
[2018-02-15] MEDS: oxyCODONE 5 mg Immediate Release Tab PO PRN (22:32)
[2018-02-16] MEDS: oxyCODONE 5 mg Immediate Release Tab PO PRN (02:43)
[2018-02-16 08:40] VITALS: BP 116/71; PULSE 69; TEMP 97.7
[2018-02-16] MEDS: Multivitamin With Minerals Tab PO SCH (09:16)
--- NOTE | 2018-02-16 14:19 | CP.PCM.DIS ---
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 Lala- substation engineer Time Spent in preparation of Discharge (in minutes): 15 Hospital Course - Lab Results Lab Results: Most Recent Lab Values WBC 8.4 K/uL (4.8-10.8) 02/14/18 06:55 RBC 3.46 Mil/uL (3.80-5.20) L 02/14/18 06:55 Hgb 9.7 g/dL (12.0-16.0) L 02/14/18 06:55 Hct 28.5 % (34.0-47.0) L 02/14/18 06:55 MCV 82.2 fl (81.0-99.0) D 02/14/18 06:55 MCH 28.1 pg (27.0-31.0) 02/14/18 06:55 MCHC 34.2 g/dL (33.0-37.0) 02/14/18 06:55 RDW 15.3 % (11.5-14.5) H 02/14/18 06:55 Plt Count 611 K/uL (130-400) H D 02/14/18 06:55 Sodium 131 mmol/l (132-148) L 02/14/18 06:55 Potassium 4.1 MMOL/L (3.6-5.0) 02/14/18 06:55 Chloride 94 mmol/L (98-107) L 02/14/18 06:55 Carbon Dioxide 27 mmol/L (22-30) 02/14/18 06:55 Anion Gap 14 (10-20) 02/14/18 06:55 BUN 14 mg/dl (7-17) 02/14/18 06:55 Creatinine 0.6 mg/dl (0.7-1.2) L 02/14/18 06:55 Est GFR ( Amer) > 60 02/14/18 06:55 Est GFR (Non-Af Amer) > 60 02/14/18 06:55 Random Glucose 94 mg/dL (65-105) 02/14/18 06:55 Calcium 8.8 mg/dL (8.4-10.2) 02/14/18 06:55 Total Bilirubin 1.0 mg/dl (0.2-1.3) 02/09/18 05:30 AST 28 U/L (14-36) 02/09/18 05:30 ALT 35 U/L (9-52) 02/09/18 05:30 Alkaline Phosphatase 173 U/L (38-126) H D 02/09/18 05:30 Total Protein 5.6 G/DL (6.3-8.2) L 02/09/18 05:30 Albumin 2.6 g/dL (3.5-5.0) L 02/09/18 05:30 Globulin 3.0 gm/dL (2.2-3.9) 02/09/18 05:30 Albumin/Globulin Ratio 0.9 (1.0-2.1) L 02/09/18 05:30 - Hospital Course Hospital Course: This is a 68 yo female with a past medical hx of htn who was admitted to TCU from [facility] (formerly [facility]) s/p L shoulder hemoarthoplasty after sustaining fracture of the L shoulder due to fall. She was admitted for further PT/OT and correction of Na. Dr. Neri saw the patient from nephrology standpoint; the patient's hyponatremia was thought to be iatrogenic from HCTZ use and was repleted to near normal levels with gentle hydration with IV normal saline. Today, the patient is HD stable and has improved with PT/OT and is ready for discharge to [facility] today. 1. S/P Left Shoulder Hemarthroplasty continue PT OT at [facility] Still requiring analgesia with PT for pain control 2.Iatrogenic Hyponatremia, improved serum Na: 131 3. HTN BP stable continue Losartan 4. Iron deficiency anemia, improved from blood loss received Venofer and Procrit Hgb: 8.0-> 9.7 CBC in am 5. DVT prophylaxis venodyne boots while in bed Lovenox DC because of anemia Discharge Exam - Head Exam Head Exam: ATRAUMATIC - Additional Findings Additional findings: Physical exam: Constitutional- cooperative, awake, alert Head- NCAT, PERRL Eye- PERRL, EOMI ENT- normal exam, MMM. Neck- normal inspection, supple, no JVD Respiratory- CTAB, no wheezes rales rhonchi Cardiovascular- RRR, +S1, +S2 no MRG GI/Abdominal- normal bowel sounds, soft, no mass, no hsm Skin- warm, dry Extremities Exam- + L shoulder decreased ROM, in sling. normal capillary refill , normal inspection Neurological Exam- alert, awake, oriented Psych- normal mood, normal affect Discharge Plan - Follow Up Plan Condition: GOOD Disposition: TRANSF TO SNF Instructions: High Blood Pressure in Adults, Shoulder Replacement (DC), Hyponatremia (DC)
== END 2018-02-16 14:40 | DRG 560 ==
LOC: H.TCU 18:33
PROVIDERS: ADMIT Student in an Organized Health Care Education/Training Program; ATTEND Student in an Organized Health Care Education/Training Program
PROC: F07Z9FZ Gait Training/Functional Ambulation Treatment using Assistive, Adaptive, Supportive or Protective Equipment (ICD-10-PCS; principal; 2018-02-06)
PROC: F08Z4FZ Home Management Treatment using Assistive, Adaptive, Supportive or Protective Equipment (ICD-10-PCS; 2018-02-06)
PROC: F07K6FZ Therapeutic Exercise Treatment of Musculoskeletal System - Upper Back / Upper Extremity using Assistive, Adaptive, Supportive or Protective Equipment (ICD-10-PCS; 2018-02-06)
PROC: 3E0234Z Introduction of Serum, Toxoid and Vaccine into Muscle, Percutaneous Approach (ICD-10-PCS; 2018-02-07)
DX: Z47.1 Aftercare following joint replacement surgery (principal); E87.1 Hypo-osmolality and hyponatremia; Z96.612 Presence of left artificial shoulder joint; D50.0 Iron deficiency anemia secondary to blood loss (chronic); G56.22 Lesion of ulnar nerve, left upper limb; I10 Essential (primary) hypertension; K59.00 Constipation, unspecified; Z23 Encounter for immunization; Z91.81 History of falling